=== PATIENT | male | born 1945 | race Caucasian/White ===

== ENCOUNTER → 2018-02-02 | Outpatient (CLI) | payer OTHER, BC ==
[~2018-02-02] VITALS: Ht 182.9 cm; Wt 81.2 kg
[~2018-02-02] MED LIST: ASPIR 8181 MG PO; CENTRUM SILVER1 EAC2 PO; FISH OIL 1,001000 M2 PO; LIPITOR10 MG PO; OSTEO BI-FLEX1 EAC1 PO; POTASSIUM CITR10 ME1 PO; ZINC50 M2 PO
--- NOTE | ~2018-02-02 | P ---
[facility] [place] [address] PROCEDURE REPORT Name: KAYLA MORALES Room #: REG [facility]#: [id number] Admission: 02/02/18 Attend Phys: Montez Talley MD Discharge: Date of : 45 Report #: [id number] THIS REPORT FOR: //name// CC: Montez Talley OUTPATIENT COLONOSCOPY REPORT BRIEF HISTORY: The patient is a 72-year-old male with a history of colon polyps. His last colonoscopy was approximately 5 years ago. PREOPERATIVE DIAGNOSIS: High-risk screening colonoscopy due to history of colon polyps. POSTOPERATIVE DIAGNOSIS: Moderately severe left-sided diverticulosis coli. MEDICATIONS: Deep sedation with propofol per anesthesia. SPECIMEN: None. ESTIMATED BLOOD LOSS: None. PROCEDURE: Colonoscopy to cecum and terminal ileum. FINDINGS: Prior to propofol sedation, procedure of colonoscopy was discussed with the patient as well as potential risks and its complications. He indicates he understands and desires to proceed. DESCRIPTION OF PROCEDURE: With the patient in left lateral decubitus position, digital examination was completed, which revealed no abnormalities. Subsequently, the fitaborate video colonoscope was introduced through the rectum and advanced under direct vision to the cecum. Done with minimal difficulty. The cecum was identified by the ileocecal valve and the appendiceal orifice. I was able to visualize the distal segment of the terminal ileum, which was inspected and noted to be unremarkable. At that point, scope was withdrawn and careful circumferential views obtained. Upon slow withdrawal of the scope, the prep was noted to be excellent. The mucosa was within normal limits. Normal vascular pattern, normal light reflex. As we withdrew the scope, no mucosal abnormalities were seen. No neoplastic lesions were seen. No abnormalities were noted until the sigmoid colon was reached, at which point, he was noted to have moderately severe diverticular disease, without endoscopic evidence of diverticulitis. Scope was withdrawn in the rectum and no abnormalities were noted. Upon retroflexion, no abnormalities were seen. Scope was withdrawn. The patient tolerated the procedure well. CONDITION OF THE PATIENT UPON DISCHARGE: Following procedure, the patient [address] [address] PROCEDURE REPORT Name: KAYLA MORALES Room #: REG [facility] Leos.#: [id number] Admission: 02/02/18 Attend Phys: Montez Talley MD Discharge: Date of : 45 Report #: [id number] drowsy, aroused, conversant and will be discharged home when fully ambulatory. INSTRUCTIONS TO THE PATIENT AND FAMILY AT THE TIME OF DISCHARGE: No neoplastic lesions were seen. At this point, suggest followup colon exam in 10 years. He will return to the care of Dr. Suarez and return to see me as needed. High-fiber diet would be suggested for his diverticular disease. Withdrawal time from the cecum was 12 minutes 41 seconds. By: [id number] Montez Talley MD /nt
== END | disposition home or self-care (01) ==
LOC: GI 06:25
DX: Z09 Encounter for follow-up examination after completed treatment for conditions other than malignant neoplasm (principal); Z86.010 Personal history of colon polyps; K57.30 Diverticulosis of large intestine without perforation or abscess without bleeding; Z87.891 Personal history of nicotine dependence; E78.5 Hyperlipidemia, unspecified; Z98.890 Other specified postprocedural states
CPT/HCPCS: G0105; 62110; 62900